=== PATIENT | male | born 1955 | race African-American/Black ===

== ENCOUNTER 2017-09-30 12:29 | Emergency (ER) | payer OTHER ==
[~2017-09-30] VITALS: Ht 170.2 cm; Wt 75.5 kg
[2017-09-30] MEDS ORDERED: UNK HTN MED PO (12:34)
[2017-09-30] MEDS ORDERED: IBUPROFEN 600 MG TABLET PO ONE (13:45)
[2017-09-30] MEDS ORDERED: AMOX TR/POT CLAV 875 MG/125 MG TABLET PO ONE (13:45)
[2017-09-30] MEDS ORDERED: PERTUSS(ACELL),DIPH,TET VAC/PF 0.5 ML VIAL IM ONE (13:45)
[2017-09-30 14:30] VITALS: BP 145/92
== END 2017-09-30 14:54 | disposition home or self-care (01) ==
LOC: EMS 12:30
DX: S51.831A Puncture wound without foreign body of right forearm, initial encounter (principal); M19.90 Unspecified osteoarthritis, unspecified site; K21.9 Gastro-esophageal reflux disease without esophagitis; I10 Essential (primary) hypertension; F17.210 Nicotine dependence, cigarettes, uncomplicated; W54.0XXA Bitten by dog, initial encounter; Y93.89 Activity, other specified; Y92.89 Other specified places as the place of occurrence of the external cause; Y99.8 Other external cause status
CPT/HCPCS: 90471; 90715; 99284

== ENCOUNTER 2018-06-02 11:11 | Emergency (ER) | payer OTHER ==
[~2018-06-02] VITALS: Ht 170.2 cm; Wt 76.4 kg
[~2018-06-02 11:11] MED LIST: UNK HTN MED PO
[2018-06-02] MEDS ORDERED: NORT25 PO (11:19)
[2018-06-02] MEDS ORDERED: GABA-531 PO (11:19)
[2018-06-02] MEDS ORDERED: GLEC1TAB PO (11:19)
[2018-06-02] MEDS ORDERED: OMEP20 PO (11:19)
[2018-06-02] MEDS ORDERED: AMLO-512 PO (11:19)
[2018-06-02] MEDS ORDERED: RANI150T7 PO (11:19)
[2018-06-02] MEDS ORDERED: LISI-662 PO (11:19)
[2018-06-02] MEDS ORDERED: MORPHINE SULFATE 4 MG/ML SYRINGE IVP ONE (11:45)
[2018-06-02] MEDS ORDERED: ONDANSETRON HCL 4 MG/2 ML VIAL IVP ONE (11:45)
[2018-06-02] MEDS ORDERED: SODIUM CHLORIDE 0.9% 1,000 ML IV ONE (11:45)
[2018-06-02] MEDS ORDERED: IOVERSOL 320 MG/ML 100 ML VIAL ONE (11:48)
[2018-06-02 11:50] LABS: BASOPHILS % (AUTO) 0.6 % (0.0-2.0); EOSINOPHILS % (AUTO) 0.4 % (1.0-6.0); HEMATOCRIT 45.5 % (41-53); HEMOGLOBIN 15.6 g/dL (13.5-17.5); LYMPHOCYTES # (AUTO) 2.6 K/uL (1.0-4.8); MEAN CORPUSCULAR HEMOGLOBIN 31.6 pg (26.0-34.0); MEAN CORPUSCULAR HGB CONC 34.2 G/dL (31.0-37.0); MEAN CORPUSCULAR VOLUME 92 fL (80-100); MONOCYTES % (AUTO) 6.8 % (2.0-9.0); NEUTROPHILS # (AUTO) 11.4 K/uL (1.8-7.7); NEUTROPHILS % (AUTO) 75.2 % (40.0-70.0); PLATELET COUNT (AUTO) 269 K/uL (150-450); RED BLOOD CELL COUNT(AUTO) 4.93 MIL/uL (4.50-5.90); RED CELL DISTRIBUTION WIDTH 12.5 % (11.5-14.5)
[2018-06-02 12:00] VITALS: BP 153/81
[2018-06-02 12:01] LABS: ANION GAP 10 mmol/L (8-16); CALCIUM, TOTAL 9.9 mg/dL (8.8-10.5); CARBON DIOXIDE 28 mmol/L (22-29); CHLORIDE 100 mmol/L (98-107); CREATININE 1.09 mg/dL (0.60-1.30); GLOMERULAR FILTR. RATE CALC > 60 mL/min (>60); GLUCOSE,RANDOM 174 mg/dL (70-110); POTASSIUM 4.6 mmol/L (3.5-5.1); SODIUM SERUM 138 mmol/L (136-145); UREA NITROGEN, BLOOD 14 mg/dL (7-18)
[2018-06-02 12:07] LABS: ALANINE AMINOTRANSFERASE 22 U/L (12-78); ALBUMIN 3.9 g/dL (3.4-5.0); ALKALINE PHOSPHATASE 79 U/L (46-116); ASPARTATE AMINOTRANSFERASE 15 U/L (15-37); BILIRUBIN,TOTAL 0.7 mg/dL (0.1-1.0); LIPASE 73 U/L (73-393); TOTAL PROTEIN, SERUM 8.1 g/dL (6.4-8.2)
[2018-06-02 13:13] LABS: BILIRUBIN,URINE NEGATIVE (NEGATIVE); GLUCOSE, URINE (UA) NEGATIVE (NEGATIVE); KETONES,URINE >=80 mg/dL (NEGATIVE); LEUKOCYTE ESTERASE ,URINE TRACE (NEGATIVE); NITRATE,URINE NEGATIVE (NEGATIVE); OCCULT BLOOD,URINE NEGATIVE (NEGATIVE); PROTEIN,URINE POS 1+ (NEGATIVE)
[2018-06-02 13:43] LABS: APPEARANCE,URINE HAZY (CLEAR); BACTERIA,URINE None Seen /HPF (None Seen); RBC,URINE None Seen /HPF (0-2); SQUAMOUS EPITHELIAL CELL,UR Few /LPF (None Seen); WBC,URINE 0-2 /HPF (0-5)
== END 2018-06-02 14:32 | disposition home or self-care (01) ==
LOC: EMS 11:12
DX: K52.9 Noninfective gastroenteritis and colitis, unspecified (principal); K21.9 Gastro-esophageal reflux disease without esophagitis; I10 Essential (primary) hypertension; M19.90 Unspecified osteoarthritis, unspecified site; F17.210 Nicotine dependence, cigarettes, uncomplicated; Z79.899 Other long term (current) drug therapy
CPT/HCPCS: 36415; 74177; 80053; 81001; 83690; 84484; 85025; 93005; 96361; 96374; 96375; 99285; G0480; J2270; J2405; J7030; Q9967

== ENCOUNTER 2018-07-04 22:32 | Emergency (ER) | payer OTHER ==
[~2018-07-04] VITALS: Ht 170.2 cm; Wt 75.5 kg
[~2018-07-04 22:32] MED LIST changes: +AMLO-512 PO; +GABA-531 PO; +GLEC1TAB PO; +LISI-662 PO; +NORT25 PO; +OMEP20 PO; +RANI150T7 PO
[2018-07-04 23:23] LABS: BASOPHILS % (AUTO) 0.8 % (0.0-2.0); EOSINOPHILS % (AUTO) 0.6 % (1.0-6.0); HEMOGLOBIN 14.5 g/dL (13.5-17.5); LYMPHOCYTES # (AUTO) 2.6 K/uL (1.0-4.8); LYMPHOCYTES % (AUTO) 18.1 % (22.0-44.0); MEAN CORPUSCULAR HEMOGLOBIN 31.5 pg (26.0-34.0); MEAN CORPUSCULAR HGB CONC 33.8 G/dL (31.0-37.0); MEAN CORPUSCULAR VOLUME 93 fL (80-100); MONOCYTES # (AUTO) 1.1 K/uL (0.1-1.0); MONOCYTES % (AUTO) 7.9 % (2.0-9.0); NEUTROPHILS # (AUTO) 10.3 K/uL (1.8-7.7); NEUTROPHILS % (AUTO) 72.6 % (40.0-70.0); PLATELET COUNT (AUTO) 267 K/uL (150-450); RED BLOOD CELL COUNT(AUTO) 4.61 MIL/uL (4.50-5.90); RED CELL DISTRIBUTION WIDTH 12.6 % (11.5-14.5)
[2018-07-04 23:33] LABS: ANION GAP 10 mmol/L (8-16); CALCIUM, TOTAL 8.8 mg/dL (8.8-10.5); CARBON DIOXIDE 25 mmol/L (22-29); CHLORIDE 101 mmol/L (98-107); CREATININE 0.99 mg/dL (0.60-1.30); GLOMERULAR FILTR. RATE CALC > 60 mL/min (>60); GLUCOSE,RANDOM 189 mg/dL (70-110); POTASSIUM 4.5 mmol/L (3.5-5.1); SODIUM SERUM 136 mmol/L (136-145); UREA NITROGEN, BLOOD 16 mg/dL (7-18)
[2018-07-04 23:38] LABS: ALANINE AMINOTRANSFERASE 21 U/L (12-78); ALBUMIN 3.8 g/dL (3.4-5.0); ALKALINE PHOSPHATASE 67 U/L (46-116); ASPARTATE AMINOTRANSFERASE 16 U/L (15-37); BILIRUBIN,TOTAL 0.6 mg/dL (0.1-1.0); LIPASE 127 U/L (73-393); TOTAL PROTEIN, SERUM 7.6 g/dL (6.4-8.2)
[2018-07-05 00:27] LABS: APPEARANCE,URINE CLEAR (CLEAR); BILIRUBIN,URINE PRELIM. POSITIVE (NEGATIVE); GLUCOSE, URINE (UA) NEGATIVE (NEGATIVE); KETONES,URINE 40 mg/dL (NEGATIVE); LEUKOCYTE ESTERASE ,URINE TRACE (NEGATIVE); NITRATE,URINE NEGATIVE (NEGATIVE); OCCULT BLOOD,URINE NEGATIVE (NEGATIVE); PROTEIN,URINE TRACE (NEGATIVE); UROBILINOGEN,URINE 0.2 mg/dL (<=1.0)
[2018-07-05 00:34] LABS: BACTERIA,URINE Rare /HPF (None Seen); RBC,URINE 0-2 /HPF (0-2)
[2018-07-05 00:35] LABS: MUCUS,URINE Moderate LPF (None Seen); SQUAMOUS EPITHELIAL CELL,UR Few /LPF (None Seen)
[2018-07-05] MEDS ORDERED: PB/HYOSCY/ATR/SCOP/LIDO/MAALOX 55 ML BOTTLE PO ONE (00:45)
[2018-07-05] MEDS ORDERED: SUCRALFATE 1 GM TABLET PO ONE (00:45)
[2018-07-05] MEDS ORDERED: SODIUM CHLORIDE 0.9% 1,000 ML IV ONE (00:45)
[2018-07-05] MEDS ORDERED: FAMOTIDINE 10 MG/ML 2 ML VIAL IVP ONE (00:45)
[2018-07-05] MEDS ORDERED: IOVERSOL 350 MG/ML 100 ML VIAL ONE (01:28)
[2018-07-05] MEDS ORDERED: SODIUM CHLORIDE 0.9% 100 ML ONE (01:28)
[2018-07-05] MEDS ORDERED: SULFAMETHOX/TRIMETH DS 800-160 MG/TABLET PO ONE (03:30)
[2018-07-05] MEDS ORDERED: MetroNIDAZOLE 250 MG TABLET PO ONE (03:30)
[2018-07-05 04:15] VITALS: BP 125/69
== END 2018-07-05 04:10 | disposition home or self-care (01) ==
LOC: EMS 22:32
DX: K52.9 Noninfective gastroenteritis and colitis, unspecified (principal); K21.9 Gastro-esophageal reflux disease without esophagitis; I10 Essential (primary) hypertension; F17.210 Nicotine dependence, cigarettes, uncomplicated; F12.90 Cannabis use, unspecified, uncomplicated; Z79.899 Other long term (current) drug therapy
CPT/HCPCS: 36415; 74177; 80053; 81001; 83690; 85025; 87086; 93005; 96361; 96374; 99285; J3490; J7030; J7050; Q9967; Z7610

== ENCOUNTER 2018-08-08 08:16 | Emergency (ER) | payer OTHER ==
[~2018-08-08] VITALS: Ht 170.2 cm; Wt 90.3 kg
[2018-08-08 09:06] LABS: BASOPHILS % (AUTO) 0.5 % (0.0-2.0); EOSINOPHILS % (AUTO) 1.1 % (1.0-6.0); HEMATOCRIT 45.6 % (41-53); HEMOGLOBIN 15.4 g/dL (13.5-17.5); LYMPHOCYTES # (AUTO) 2.1 K/uL (1.0-4.8); LYMPHOCYTES % (AUTO) 12.7 % (22.0-44.0); MEAN CORPUSCULAR HEMOGLOBIN 31.7 pg (26.0-34.0); MEAN CORPUSCULAR HGB CONC 33.7 G/dL (31.0-37.0); MEAN CORPUSCULAR VOLUME 94 fL (80-100); MONOCYTES # (AUTO) 1.3 K/uL (0.1-1.0); MONOCYTES % (AUTO) 7.5 % (2.0-9.0); NEUTROPHILS # (AUTO) 13.1 K/uL (1.8-7.7); NEUTROPHILS % (AUTO) 78.2 % (40.0-70.0); PLATELET COUNT (AUTO) 250 K/uL (150-450); RED BLOOD CELL COUNT(AUTO) 4.85 MIL/uL (4.50-5.90); RED CELL DISTRIBUTION WIDTH 12.6 % (11.5-14.5)
[2018-08-08] MEDS ORDERED: ONDANSETRON HCL 4 MG/2 ML VIAL IVP ONE (09:15)
[2018-08-08] MEDS ORDERED: SODIUM CHLORIDE 0.9% 1,000 ML IV ONE (09:15)
[2018-08-08] MEDS ORDERED: FAMOTIDINE 10 MG/ML 2 ML VIAL IVP ONE (09:15)
[2018-08-08] MEDS ORDERED: PB/HYOSCY/ATR/SCOP/LIDO/MAALOX 55 ML BOTTLE PO ONE (09:15)
[2018-08-08 09:19] LABS: ANION GAP 6 mmol/L (8-16); CALCIUM, TOTAL 9.5 mg/dL (8.8-10.5); CARBON DIOXIDE 30 mmol/L (22-29); CHLORIDE 101 mmol/L (98-107); GLOMERULAR FILTR. RATE CALC > 60 mL/min (>60); GLUCOSE,RANDOM 122 mg/dL (70-110); POTASSIUM 4.4 mmol/L (3.5-5.1); SODIUM SERUM 137 mmol/L (136-145); UREA NITROGEN, BLOOD 12 mg/dL (7-18)
[2018-08-08 09:25] LABS: ALANINE AMINOTRANSFERASE 27 U/L (12-78); ALBUMIN 3.9 g/dL (3.4-5.0); ALKALINE PHOSPHATASE 68 U/L (46-116); ASPARTATE AMINOTRANSFERASE 16 U/L (15-37); BILIRUBIN,TOTAL 0.8 mg/dL (0.1-1.0); LIPASE 88 U/L (73-393); TOTAL PROTEIN, SERUM 7.9 g/dL (6.4-8.2)
[2018-08-08 09:35] LABS: GLUCOSE, URINE (UA) NEGATIVE (NEGATIVE); KETONES,URINE 40 mg/dL (NEGATIVE); LEUKOCYTE ESTERASE ,URINE SMALL (NEGATIVE); NITRATE,URINE NEGATIVE (NEGATIVE); OCCULT BLOOD,URINE NEGATIVE (NEGATIVE); PROTEIN,URINE POS 1+ (NEGATIVE); UROBILINOGEN,URINE 0.2 mg/dL (<=1.0)
[2018-08-08 09:40] LABS: BILIRUBIN,URINE PRELIM. POSITIVE (NEGATIVE)
[2018-08-08 09:41] LABS: APPEARANCE,URINE HAZY (CLEAR); BACTERIA,URINE None Seen /HPF (None Seen)
[2018-08-08 09:42] LABS: RBC,URINE 0-2 /HPF (0-2); SQUAMOUS EPITHELIAL CELL,UR Moderate /LPF (None Seen)
[2018-08-08 10:41] VITALS: BP 137/87
== END 2018-08-08 11:21 | disposition home or self-care (01) ==
LOC: EMS 08:17
DX: R10.13 Epigastric pain (principal); D72.829 Elevated white blood cell count, unspecified; K21.9 Gastro-esophageal reflux disease without esophagitis; I10 Essential (primary) hypertension; M19.90 Unspecified osteoarthritis, unspecified site; F17.210 Nicotine dependence, cigarettes, uncomplicated; F12.90 Cannabis use, unspecified, uncomplicated; Z79.899 Other long term (current) drug therapy
CPT/HCPCS: 36415; 80053; 81001; 83690; 84484; 85025; 93005; 96374; 96375; 99285; 99406; J2405; J3490; J7030

== ENCOUNTER 2018-08-21 18:41 | Emergency (ER) | payer OTHER ==
[~2018-08-21] VITALS: Ht 170.2 cm; Wt 76.4 kg
[2018-08-21 20:05] LABS: BASOPHILS % (AUTO) 0.6 % (0.0-2.0); EOSINOPHILS % (AUTO) 0.8 % (1.0-6.0); HEMATOCRIT 43.8 % (41-53); HEMOGLOBIN 14.7 g/dL (13.5-17.5); LYMPHOCYTES % (AUTO) 13.6 % (22.0-44.0); MEAN CORPUSCULAR HEMOGLOBIN 31.4 pg (26.0-34.0); MEAN CORPUSCULAR HGB CONC 33.6 G/dL (31.0-37.0); MEAN CORPUSCULAR VOLUME 93 fL (80-100); MONOCYTES # (AUTO) 0.7 K/uL (0.1-1.0); MONOCYTES % (AUTO) 4.5 % (2.0-9.0); NEUTROPHILS # (AUTO) 11.8 K/uL (1.8-7.7); NEUTROPHILS % (AUTO) 80.5 % (40.0-70.0); PLATELET COUNT (AUTO) 319 K/uL (150-450); RED BLOOD CELL COUNT(AUTO) 4.68 MIL/uL (4.50-5.90); RED CELL DISTRIBUTION WIDTH 12.6 % (11.5-14.5)
[2018-08-21 20:27] LABS: ANION GAP 9 mmol/L (8-16); CARBON DIOXIDE 28 mmol/L (22-29); CHLORIDE 100 mmol/L (98-107); GLOMERULAR FILTR. RATE CALC > 60 mL/min (>60); GLUCOSE,RANDOM 152 mg/dL (70-110); POTASSIUM 4.1 mmol/L (3.5-5.1); SODIUM SERUM 137 mmol/L (136-145); UREA NITROGEN, BLOOD 16 mg/dL (7-18)
[2018-08-21 20:31] LABS: ALANINE AMINOTRANSFERASE 26 U/L (12-78); ALBUMIN 3.9 g/dL (3.4-5.0); ALKALINE PHOSPHATASE 69 U/L (46-116); ASPARTATE AMINOTRANSFERASE 19 U/L (15-37); BILIRUBIN,TOTAL 0.6 mg/dL (0.1-1.0); LIPASE 91 U/L (73-393); TOTAL PROTEIN, SERUM 8.2 g/dL (6.4-8.2)
[2018-08-21] MEDS ORDERED: ONDANSETRON HCL 4 MG/2 ML VIAL IVP ONE (21:15)
[2018-08-21] MEDS ORDERED: MORPHINE SULFATE 4 MG/ML SYRINGE IVP ONE (21:15)
[2018-08-21] MEDS ORDERED: SODIUM CHLORIDE 0.9% 1,000 ML IV ONE (21:15)
[2018-08-21] MEDS ORDERED: PB/HYOSCY/ATR/SCOP/LIDO/MAALOX 55 ML BOTTLE PO ONE (21:15)
[2018-08-21 21:24] LABS: APPEARANCE,URINE CLEAR (CLEAR); BILIRUBIN,URINE NEGATIVE (NEGATIVE); GLUCOSE, URINE (UA) NEGATIVE (NEGATIVE); KETONES,URINE >=80 mg/dL (NEGATIVE); LEUKOCYTE ESTERASE ,URINE NEGATIVE (NEGATIVE); NITRATE,URINE NEGATIVE (NEGATIVE); OCCULT BLOOD,URINE NEGATIVE (NEGATIVE); PH,URINE 5.5 (5.0-8.0); PROTEIN,URINE TRACE (NEGATIVE); UROBILINOGEN,URINE 0.2 mg/dL (<=1.0)
[2018-08-21] MEDS ORDERED: IOVERSOL 320 MG/ML 100 ML VIAL ONE (21:43)
[2018-08-21] MEDS ORDERED: SODIUM CHLORIDE 0.9% 100 ML ONE (21:43)
[2018-08-21 23:10] VITALS: BP 124/86
== END 2018-08-21 23:32 | disposition home or self-care (01) ==
LOC: EMS 18:42
DX: R10.13 Epigastric pain (principal); R11.2 Nausea with vomiting, unspecified; R10.12 Left upper quadrant pain; K21.9 Gastro-esophageal reflux disease without esophagitis; I10 Essential (primary) hypertension; M19.90 Unspecified osteoarthritis, unspecified site; F17.210 Nicotine dependence, cigarettes, uncomplicated; F12.90 Cannabis use, unspecified, uncomplicated; Z79.899 Other long term (current) drug therapy
CPT/HCPCS: 36415; 74177; 80053; 81003; 83690; 84484; 85025; 96374; 96375; 99284; J2270; J2405; J7030; J7050; Q9967

== ENCOUNTER 2019-06-27 17:16 | Inpatient (IN) | payer OTHER ==
[~2019-06-27] VITALS: Ht 170.2 cm; Wt 76.8 kg
[~2019-06-27 17:16] MED LIST changes: -AMLO-512 PO; +AMLO10TA7 PO
[2019-06-27] MEDS ORDERED: SODIUM CHLORIDE 0.9% 1,000 ML IV ONE ×3 (17:45→21:15)
[2019-06-27] MEDS ORDERED: ONDANSETRON HCL 4 MG/2 ML VIAL IVP ONE (17:45)
[2019-06-27] MEDS ORDERED: FAMOTIDINE 10 MG/ML 2 ML VIAL IVP ONE (17:45)
[2019-06-27 18:02] LABS: BASOPHILS % (AUTO) 0.5 % (0.0-2.0); EOSINOPHILS % (AUTO) 2.5 % (1.0-6.0); HEMATOCRIT 42.6 % (41-53); LYMPHOCYTES # (AUTO) 2.9 K/uL (1.0-4.8); LYMPHOCYTES % (AUTO) 19.6 % (22.0-44.0); MEAN CORPUSCULAR HGB CONC 32.9 G/dL (31.0-37.0); MEAN CORPUSCULAR VOLUME 94 fL (80-100); MONOCYTES # (AUTO) 1.2 K/uL (0.1-1.0); MONOCYTES % (AUTO) 7.9 % (2.0-9.0); NEUTROPHILS # (AUTO) 10.4 K/uL (1.8-7.7); NEUTROPHILS % (AUTO) 69.5 % (40.0-70.0); PLATELET COUNT (AUTO) 280 K/uL (150-450); RED BLOOD CELL COUNT(AUTO) 4.52 MIL/uL (4.50-5.90)
[2019-06-27 18:15] LABS: ANION GAP 12 mmol/L (8-16); CALCIUM, TOTAL 9.6 mg/dL (8.8-10.5); CARBON DIOXIDE 24 mmol/L (22-29); CHLORIDE 101 mmol/L (98-107); CREATININE 1.18 mg/dL (0.60-1.30); GLOMERULAR FILTR. RATE CALC > 60 mL/min (>60); GLUCOSE,RANDOM 160 mg/dL (70-110); SODIUM SERUM 137 mmol/L (136-145); UREA NITROGEN, BLOOD 13 mg/dL (7-18)
[2019-06-27 18:20] LABS: PROTHROMBIN TIME 10.2 SEC (9.4-11.6)
[2019-06-27 18:31] LABS: B-TYPE NATRIURETIC PEPTIDE 25 pg/mL (0-100)
[2019-06-27 18:41] LABS: ALANINE AMINOTRANSFERASE 27 U/L (12-78); ALBUMIN 3.8 g/dL (3.4-5.0); ALKALINE PHOSPHATASE 49 U/L (46-116); ASPARTATE AMINOTRANSFERASE 21 U/L (15-37); BILIRUBIN,TOTAL 0.4 mg/dL (0.1-1.0); CREATINE KINASE, TOTAL ONLY 267 U/L (39-308); LIPASE 56 U/L (73-393); TOTAL PROTEIN, SERUM 7.1 g/dL (6.4-8.2)
[2019-06-27] MEDS ORDERED: SODIUM CHLORIDE 0.9% 100 ML ONE (18:56)
[2019-06-27] MEDS ORDERED: IOVERSOL 320 MG/ML 100 ML VIAL ONE (18:56)
[2019-06-27] MEDS ORDERED: PB/HYOSCY/ATR/SCOP/LIDO/MAALOX 55 ML BOTTLE PO ONE (19:00)
[2019-06-27 19:26] LABS: APPEARANCE,URINE CLEAR (CLEAR); BILIRUBIN,URINE NEGATIVE (NEGATIVE); GLUCOSE, URINE (UA) NEGATIVE (NEGATIVE); KETONES,URINE TRACE mg/dL (NEGATIVE); LEUKOCYTE ESTERASE ,URINE NEGATIVE (NEGATIVE); NITRATE,URINE NEGATIVE (NEGATIVE); OCCULT BLOOD,URINE NEGATIVE (NEGATIVE); PROTEIN,URINE NEGATIVE (NEGATIVE); UROBILINOGEN,URINE 0.2 mg/dL (<=1.0)
[2019-06-27] MEDS ORDERED: MORPHINE SULFATE 4 MG/ML SYRINGE IVP ONE (20:30)
[2019-06-27] MEDS ORDERED: MetroNIDAZOLE 500 MG/NACL 100 ML IV ONE (20:30)
[2019-06-27] MEDS ORDERED: CIPROFLOXACIN 400 MG/D5% WATER 200 ML IV ONE (20:30)
[2019-06-27] MEDS ORDERED: NICOTINE 21 MG/24 HOUR PATCH TD ONE (20:45)
[2019-06-27 22:01] VITALS: BP 139/92
[2019-06-27 23:41] VITALS: BP 135/61
[2019-06-27] MEDS ORDERED: OxyCODONE HCL/ACETAMINOPHEN 5-325 MG TABLET PO PRN (23:45)
[2019-06-28] MEDS ORDERED: OxyCODONE HCL/ACETAMINOPHEN 5-325 MG TABLET PO PRN ×2 (00:45)
[2019-06-28] MEDS ORDERED: 0.9% SODIUM CHLORIDE 10 ML SYRINGE IVP PRN (00:45)
[2019-06-28] MEDS ORDERED: ONDANSETRON HCL 4 MG/2 ML VIAL IVP PRN (00:45)
[2019-06-28 04:44] VITALS: BP 142/88
[2019-06-28] MEDS ORDERED: MetroNIDAZOLE 500 MG/NACL 100 ML IV SCH (05:00)
[2019-06-28 07:45] VITALS: BP 126/80
[2019-06-28] MEDS ORDERED: AmLODIPine BESYLATE 10 MG TABLET PO SCH (09:00)
[2019-06-28] MEDS ORDERED: LISINOPRIL 20 MG TABLET PO SCH (09:00)
[2019-06-28] MEDS ORDERED: FAMOTIDINE 10 MG/ML 2 ML VIAL IVP SCH ×2 (09:00→21:00)
[2019-06-28] MEDS ORDERED: DOCUSATE SODIUM 100 MG CAPSULE PO SCH (09:00)
[2019-06-28] MEDS ORDERED: CIPROFLOXACIN 400 MG/D5% WATER 200 ML IV SCH (10:00)
[2019-06-28 10:31] LABS: BASOPHILS % (AUTO) 0.4 % (0.0-2.0); EOSINOPHILS % (AUTO) 2.4 % (1.0-6.0); HEMATOCRIT 34.4 % (41-53); HEMOGLOBIN 11.6 g/dL (13.5-17.5); LYMPHOCYTES % (AUTO) 28.2 % (22.0-44.0); MEAN CORPUSCULAR HEMOGLOBIN 32.3 pg (26.0-34.0); MEAN CORPUSCULAR HGB CONC 33.8 G/dL (31.0-37.0); MEAN CORPUSCULAR VOLUME 96 fL (80-100); MONOCYTES # (AUTO) 0.8 K/uL (0.1-1.0); NEUTROPHILS # (AUTO) 6.5 K/uL (1.8-7.7); PLATELET COUNT (AUTO) 197 K/uL (150-450); RED CELL DISTRIBUTION WIDTH 12.7 % (11.5-14.5)
[2019-06-28] MEDS ORDERED: SODIUM CHLORIDE 0.9% 1,000 ML IV SCH (10:45)
[2019-06-28] MEDS ORDERED: LACTOBACILLUS ACIDOPHILUS/BULGARICUS TABLET PO SCH (10:45)
[2019-06-28] MEDS ORDERED: DOCUSATE SODIUM 100 MG CAPSULE PO PRN (10:45)
[2019-06-28] MEDS ORDERED: MORPHINE SULFATE 2 MG/ML SYRINGE IVP PRN (10:45)
[2019-06-28] MEDS ORDERED: CefTRIAXone 1 GM/DEXTROSE 50 ML IV SCH (11:00)
[2019-06-28 11:20] VITALS: BP 102/53
[2019-07-03 16:27] VITALS: BP 103/57
== END 2019-06-28 12:55 | disposition left against medical advice (07) | DRG 282 ==
LOC: EMS 17:16 → 4E 21:30
PROVIDERS: ADMIT Internal Medicine; ATTEND Internal Medicine
DX: K85.90 Acute pancreatitis without necrosis or infection, unspecified (principal); R65.11 Systemic inflammatory response syndrome (SIRS) of non-infectious origin with acute organ dysfunction; K75.9 Inflammatory liver disease, unspecified; F17.210 Nicotine dependence, cigarettes, uncomplicated; K52.9 Noninfective gastroenteritis and colitis, unspecified; K21.9 Gastro-esophageal reflux disease without esophagitis; M19.90 Unspecified osteoarthritis, unspecified site; I10 Essential (primary) hypertension; Z87.11 Personal history of peptic ulcer disease; R73.9 Hyperglycemia, unspecified; Z53.21 Procedure and treatment not carried out due to patient leaving prior to being seen by health care provider
CPT/HCPCS: 74177; 82270; 83036; 83605; 87040; 87045; 87206; 89055; 93005; 96374; 96375; G0378; J0696; J0744; J2270; J2405; J3490; J7030; J7050

== ENCOUNTER 2024-02-13 05:01 | Emergency (ER) | payer OTHER ==
[~2024-02-13] VITALS: Ht 175.3 cm; Wt 78.2 kg
[~2024-02-13 05:01] MED LIST changes: +AMLO-258 PO; -AMLO10TA7 PO; +GABA-1181 PO; -GABA-531 PO; -GLEC1TAB PO; -LISI-662 PO; +LISI-894 PO; -UNK HTN MED PO
[2024-02-13 05:05] VITALS: BP 105/61; PULSE 112; RESP 16; TEMP 98
== END 2024-02-13 06:40 | disposition left against medical advice (07) ==
LOC: EMS 05:02
DX: F22 Delusional disorders (principal); M19.90 Unspecified osteoarthritis, unspecified site; F32.A Depression, unspecified; I10 Essential (primary) hypertension; F17.210 Nicotine dependence, cigarettes, uncomplicated; F12.90 Cannabis use, unspecified, uncomplicated; F15.90 Other stimulant use, unspecified, uncomplicated; Z98.890 Other specified postprocedural states
CPT/HCPCS: 99281; Z7502

== ENCOUNTER 2024-03-26 23:37 | Emergency (ER) | payer OTHER ==
[~2024-03-26] VITALS: Ht 170.2 cm; Wt 79.1 kg
[2024-03-26 23:41] VITALS: TEMP 97.4
[2024-03-27] MEDS: LORazepam 2 MG/ML VIAL IM ONE (01:09)
[2024-03-27 01:29] LABS: BASOPHILS % (AUTO) 0.3 % (0.0-2.0); EOSINOPHILS % (AUTO) 1.7 % (1.0-6.0); HEMATOCRIT 38.3 % (41-53); LYMPHOCYTES # (AUTO) 2.4 K/uL (1.0-4.8); LYMPHOCYTES % (AUTO) 18.5 % (22.0-44.0); MEAN CORPUSCULAR HEMOGLOBIN 31.5 pg (26.0-34.0); MEAN CORPUSCULAR HGB CONC 34.1 G/dL (31.0-37.0); MEAN CORPUSCULAR VOLUME 93 fL (80-100); MONOCYTES # (AUTO) 1.5 K/uL (0.1-1.0); MONOCYTES % (AUTO) 11.8 % (2.0-9.0); NEUTROPHILS # (AUTO) 8.7 K/uL (1.8-7.7); NEUTROPHILS % (AUTO) 67.7 % (40.0-70.0); PLATELET COUNT (AUTO) 269 K/uL (150-450); RED BLOOD CELL COUNT(AUTO) 4.13 MIL/uL (4.50-5.90); RED CELL DISTRIBUTION WIDTH 12.9 % (11.5-14.5); WHITE BLOOD COUNT (AUTO) 12.9 K/uL (4.5-11.0)
[2024-03-27 01:42] LABS: ANION GAP 9 mmol/L (8-16); CALCIUM, TOTAL 9.6 mg/dL (8.8-10.5); CARBON DIOXIDE 29 mmol/L (22-29); CHLORIDE 93 mmol/L (98-107); CREATININE 0.99 mg/dL (0.60-1.30); GLOMERULAR FILTR. RATE CALC > 60 mL/min (>60); GLUCOSE,RANDOM 125 mg/dL (70-110); POTASSIUM 3.1 mmol/L (3.5-5.1); SODIUM SERUM 131 mmol/L (136-145); UREA NITROGEN, BLOOD 16 mg/dL (7-18)
[2024-03-27 01:50] LABS: TROPONIN I-HIGH SENSITIVITY 18 ng/L (<76)
[2024-03-27 01:50] LABS: PH,URINE DRUG SCREEN 5.5 (5.0-8.0)
[2024-03-27 01:56] LABS: ALCOHOL, URINE DRUG SCREEN NEGATIVE (NEGATIVE); AMPHET/METH SCREEN,URINE POSITIVE (NEGATIVE); BARBITURATE SCREEN, URINE NEGATIVE (NEGATIVE); BENZODIAZEPINES SCREEN,URINE NEGATIVE (NEGATIVE); CANNABINOID SCREEN,URINE NEGATIVE (NEGATIVE); COCAINE SCREEN,URINE NEGATIVE (NEGATIVE); METHADONE SCREEN, URINE NEGATIVE (NEGATIVE); OPIATE SCREEN,URINE POSITIVE (NEGATIVE); PHENCYCLIDINE SCREEN,URINE NEGATIVE (NEGATIVE)
[2024-03-27 01:57] LABS: ALCOHOL, BLOOD (SERUM) < 3 mg/dL (0-10)
[2024-03-27] MEDS: OLANZapine 10 MG TABLET PO ONE (02:17)
[2024-03-27] MEDS: POTASSIUM CHLORIDE 20 MEQ ER TABLET PO ONE (02:17)
[2024-03-27] MEDS ORDERED: OLAN10TA22 PO (03:09)
[2024-03-27 08:12] VITALS: BP 140/89; PULSE 85; RESP 14
== END 2024-03-27 08:48 | disposition home or self-care (01) ==
LOC: EMS 23:37
DX: F15.10 Other stimulant abuse, uncomplicated (principal); F60.0 Paranoid personality disorder; E87.6 Hypokalemia; K21.9 Gastro-esophageal reflux disease without esophagitis; I10 Essential (primary) hypertension; F12.90 Cannabis use, unspecified, uncomplicated; F17.210 Nicotine dependence, cigarettes, uncomplicated; Z59.00 Homelessness unspecified; Z79.899 Other long term (current) drug therapy
CPT/HCPCS: 99285; 80048; 84484; 85025; 36415; 80307; 71045; 93005; 96372; G0480; J2060

== ENCOUNTER 2024-06-15 17:52 | Emergency (ER) | payer OTHER ==
[~2024-06-15 17:52] MED LIST changes: +OLAN10TA22 PO
== END 2024-06-15 18:18 | disposition left against medical advice (07) ==
LOC: EMS 17:54
DX: Z53.21 Procedure and treatment not carried out due to patient leaving prior to being seen by health care provider (principal)

== ENCOUNTER 2024-07-09 17:30 | Emergency (ER) | payer OTHER ==
[~2024-07-09] VITALS: Ht 170.2 cm; Wt 71.4 kg
[2024-07-09 19:20] VITALS: TEMP 98.7
[2024-07-09 19:46] LABS: GLUCOMETER DEV NAME(LOC) ER.7; GLUCOSE,POINT OF CARE 99 MG/DL (70-110)
[2024-07-09 20:25] LABS: BASOPHILS % (AUTO) 0.8 % (0.0-2.0); HEMATOCRIT 36.4 % (41-53); HEMOGLOBIN 12.2 g/dL (13.5-17.5); LYMPHOCYTES # (AUTO) 1.8 K/uL (1.0-4.8); LYMPHOCYTES % (AUTO) 20.3 % (22.0-44.0); MEAN CORPUSCULAR HEMOGLOBIN 31.3 pg (26.0-34.0); MEAN CORPUSCULAR HGB CONC 33.4 G/dL (31.0-37.0); MEAN CORPUSCULAR VOLUME 94 fL (80-100); MONOCYTES # (AUTO) 1.2 K/uL (0.1-1.0); NEUTROPHILS # (AUTO) 5.5 K/uL (1.8-7.7); NEUTROPHILS % (AUTO) 60.9 % (40.0-70.0); PLATELET COUNT (AUTO) 306 K/uL (150-450); RED BLOOD CELL COUNT(AUTO) 3.88 MIL/uL (4.50-5.90); RED CELL DISTRIBUTION WIDTH 13.3 % (11.5-14.5); WHITE BLOOD COUNT (AUTO) 9.1 K/uL (4.5-11.0)
[2024-07-09 20:35] LABS: ANION GAP 10 mmol/L (8-16); CALCIUM, TOTAL 9.2 mg/dL (8.8-10.5); CARBON DIOXIDE 28 mmol/L (22-29); CHLORIDE 103 mmol/L (98-107); CREATININE 0.79 mg/dL (0.60-1.30); GLOMERULAR FILTR. RATE CALC > 60 mL/min (>60); GLUCOSE,RANDOM 99 mg/dL (70-110); POTASSIUM 3.4 mmol/L (3.5-5.1); SODIUM SERUM 141 mmol/L (136-145); UREA NITROGEN, BLOOD 12 mg/dL (7-18)
[2024-07-09 20:44] LABS: ALCOHOL, BLOOD (SERUM) < 3 mg/dL (0-10)
[2024-07-09] MEDS: ACETAMINOPHEN 500 MG TABLET PO ONE (21:59)
[2024-07-09] MEDS: POTASSIUM CHLORIDE 20 MEQ ER TABLET PO ONE (21:59)
[2024-07-09 22:00] VITALS: BP 135/77; PULSE 81; RESP 15; O2SAT 95
[2024-07-09] MEDS: IBUPROFEN 600 MG TABLET PO ONE (22:00)
[2024-07-09] MEDS: GABAPENTIN 300 MG CAPSULE PO ONE (22:01)
[2024-07-09 22:44] LABS: COVID AG,FIA SOURCE NASAL SWAB
[2024-07-09 22:47] LABS: APPEARANCE,URINE CLEAR (CLEAR); BILIRUBIN,URINE NEGATIVE (NEGATIVE); COLOR,URINE LIGHT YELLOW (YELLOW); GLUCOSE, URINE (UA) NEGATIVE (NEGATIVE); KETONES,URINE NEGATIVE (NEGATIVE); LEUKOCYTE ESTERASE ,URINE NEGATIVE (NEGATIVE); NITRATE,URINE NEGATIVE (NEGATIVE); OCCULT BLOOD,URINE NEGATIVE (NEGATIVE); PROTEIN,URINE NEGATIVE (NEGATIVE); SPECIFIC GRAVITIY, URINE 1.013 (1.003-1.030); UROBILINOGEN,URINE <=1.0 mg/dL (<=1.0)
[2024-07-09 22:53] LABS: ALCOHOL, URINE DRUG SCREEN NEGATIVE (NEGATIVE); AMPHET/METH SCREEN,URINE POSITIVE (NEGATIVE); BARBITURATE SCREEN, URINE NEGATIVE (NEGATIVE); BENZODIAZEPINES SCREEN,URINE NEGATIVE (NEGATIVE); CANNABINOID SCREEN,URINE NEGATIVE (NEGATIVE); COCAINE SCREEN,URINE NEGATIVE (NEGATIVE); METHADONE SCREEN, URINE NEGATIVE (NEGATIVE); OPIATE SCREEN,URINE POSITIVE (NEGATIVE); PHENCYCLIDINE SCREEN,URINE NEGATIVE (NEGATIVE)
[2024-07-09 23:02] LABS: SARS-COV2 (COVID) ANTIGEN,FIA Negative (Negative)
[2024-07-10] MEDS ORDERED: ASPI-1444 PO (04:33)
[2024-07-10] MEDS ORDERED: HYDR-4062 PO (04:33)
[2024-07-10] MEDS ORDERED: PANT-31 PO (04:33)
[2024-07-10] MEDS ORDERED: METF-81 PO (04:33)
[2024-07-10] MEDS ORDERED: ALBU18HF12 IH (04:33)
[2024-07-10] MEDS ORDERED: OLAN10TA74 PO (04:33)
[2024-07-10] MEDS ORDERED: ATOR40TA28 PO (04:33)
[2024-07-10] MEDS ORDERED: GABA-1201 PO (04:33)
[2024-07-10] MEDS ORDERED: TRAZ150T80 PO (04:33)
[2024-07-11] MEDS ORDERED: NALO4SPR5 NASAL (13:08)
[2024-07-11] MEDS ORDERED: TAMS0.4C94 PO (13:08)
[2024-07-11] MEDS ORDERED: SERT-440 PO (13:08)
[2024-07-11] MEDS ORDERED: FLUT16SP NASAL (13:08)
[2024-07-11] MEDS ORDERED: FLUT1BLS15 IH (13:08)
[2024-07-11] MEDS ORDERED: ALBU0.8311 NEB (13:08)
[2024-07-11] MEDS ORDERED: NICO-803 TD (13:08)
[2024-07-11] MEDS ORDERED: CETI10TA58 PO (13:08)
[2024-07-11] MEDS ORDERED: LOSA100T59 PO (13:08)
== END 2024-07-10 01:51 | disposition admitted as inpatient to this hospital (09) ==
LOC: EMS 17:30
DX: F23 Brief psychotic disorder (principal); G89.4 Chronic pain syndrome; J44.9 Chronic obstructive pulmonary disease, unspecified; I10 Essential (primary) hypertension; E87.6 Hypokalemia; M19.90 Unspecified osteoarthritis, unspecified site; F32.A Depression, unspecified; K21.9 Gastro-esophageal reflux disease without esophagitis; F12.90 Cannabis use, unspecified, uncomplicated; F17.210 Nicotine dependence, cigarettes, uncomplicated; F15.90 Other stimulant use, unspecified, uncomplicated; Z98.890 Other specified postprocedural states; Z20.822 Contact with and (suspected) exposure to COVID-19
CPT/HCPCS: 99285; 87426; 80048; 81003; 82962; 85025; 36415; 80307; G0480

== ENCOUNTER 2024-07-10 12:31 | Inpatient (IN) | payer MEDICARE, MEDICAID ==
[~2024-07-10] VITALS: Ht 170.2 cm; Wt 67.1 kg
[~2024-07-10 12:31] MED LIST changes: +ALBU18HF12 IH; +ASPI-1444 PO; +ATOR40TA28 PO; +GABA-1201 PO; +HYDR-4062 PO; +METF-81 PO; +OLAN10TA74 PO; +PANT-31 PO; +TRAZ150T80 PO
[2024-07-10] MEDS: HYDROCODONE/ACETAMINOPHEN 5-325 MG TABLET PO ONE (15:37)
[2024-07-10] MEDS: GABAPENTIN 300 MG CAPSULE PO ONE (15:37)
[2024-07-10] MEDS: ASPIRIN 81 MG CHEWABLE TABLET PO ONE (15:38)
[2024-07-10] MEDS ORDERED: LOPERAMIDE HCL 2 MG CAPSULE PO PRN (16:45)
[2024-07-10] MEDS ORDERED: MAGNESIUM HYDROXIDE SUSPENSION 30 ML UDCUP PO PRN (16:45)
[2024-07-10 16:46] VITALS: BP 149/85; PULSE 105; RESP 19; TEMP 98; O2SAT 95
[2024-07-10 18:15] VITALS: BP 149/85; PULSE 105; RESP 18; TEMP 98; O2SAT 96
[2024-07-10 21:02] VITALS: BP 159/89; PULSE 84; RESP 18; TEMP 97.3; O2SAT 98
[2024-07-10] MEDS: ASPIRIN 81 MG CHEWABLE TABLET PO SCH (21:10)
[2024-07-10] MEDS: LISINOPRIL 20 MG TABLET PO SCH (21:10)
[2024-07-10] MEDS: ZOLPIDEM TARTRATE 10 MG TABLET PO PRN (21:11)
[2024-07-10] MEDS: AmLODIPine BESYLATE 10 MG TABLET PO SCH (21:11)
[2024-07-10] MEDS: LORazepam 2 MG TABLET PO PRN (21:11)
[2024-07-10] MEDS: ATORVASTATIN CALCIUM 40 MG TABLET PO SCH (21:14)
[2024-07-10] MEDS: GABAPENTIN 300 MG CAPSULE PO SCH (21:14)
[2024-07-11 10:28] VITALS: BP 135/68; PULSE 96; RESP 18; TEMP 97; O2SAT 99
[2024-07-11] MEDS: ALBUTEROL SULFATE HFA 90 MCG/PUFF 8 GM INHALER IH ONE (10:43)
[2024-07-11] MEDS: OLANZapine 10 MG TABLET PO SCH (12:30)
[2024-07-11] MEDS: GABAPENTIN 400 MG CAPSULE PO SCH (13:00)
[2024-07-11] MEDS ORDERED: TAMS0.4C94 PO (13:08)
[2024-07-11] MEDS ORDERED: SERT-440 PO (13:08)
[2024-07-11] MEDS ORDERED: LOSA100T59 PO (13:08)
[2024-07-11] MEDS ORDERED: CETI10TA58 PO (13:08)
[2024-07-11] MEDS ORDERED: ALBU0.8311 NEB (13:08)
[2024-07-11] MEDS ORDERED: NICO-803 TD (13:08)
[2024-07-11] MEDS ORDERED: NALO4SPR5 NASAL (13:08)
[2024-07-11] MEDS ORDERED: FLUT16SP NASAL (13:08)
[2024-07-11] MEDS ORDERED: FLUT1BLS15 IH (13:08)
[2024-07-11] MEDS: MetFORMIN HCL 500 MG ER TABLET PO SCH (16:34)
[2024-07-11 20:40] VITALS: BP 135/70; PULSE 80; RESP 18; TEMP 97.5; O2SAT 99
[2024-07-11] MEDS: NORTRIPTYLINE HCL 25 MG CAPSULE PO SCH (21:26)
[2024-07-11] MEDS: HALOPERIDOL 5 MG TABLET PO PRN (21:28)
[2024-07-11] MEDS: TraZODone HCL 150 MG TABLET PO SCH (21:28)
[2024-07-12] MEDS: MAG HYDROX/ALUMINUM HYD/SIMETH ES 30 ML SUSPENSION UDCUP PO PRN (02:39)
[2024-07-12 08:55] VITALS: BP 124/67; PULSE 108; RESP 17; TEMP 98.1; O2SAT 99
[2024-07-12 20:54] VITALS: BP 130/70; PULSE 85; RESP 18; TEMP 97.5; O2SAT 98
[2024-07-13 11:05] VITALS: BP 100/70; PULSE 92; RESP 17; TEMP 98.1; O2SAT 99
[2024-07-13] MEDS: ACETAMINOPHEN 325 MG TABLET PO PRN (14:43)
[2024-07-13 20:30] VITALS: BP 148/83; PULSE 95; RESP 18; TEMP 97.8; O2SAT 98
[2024-07-14] MEDS ORDERED: ASPI-1450 PO (11:13)
[2024-07-14] MEDS ORDERED: NORT25 PO (11:13)
[2024-07-14] MEDS ORDERED: ATOR40TA71 PO (11:13)
[2024-07-14] MEDS ORDERED: LISI-894 PO (11:13)
[2024-07-14] MEDS ORDERED: AMLO-258 PO (11:13)
[2024-07-14] MEDS ORDERED: TRAZ-283 PO (11:13)
[2024-07-14] MEDS ORDERED: OLAN10TA74 PO (11:13)
[2024-07-14] MEDS ORDERED: METF-81 PO (11:13)
[2024-07-14] MEDS ORDERED: GABA-1201 PO (11:13)
[2024-07-14 11:25] VITALS: RESP 18
== END 2024-07-14 11:45 | disposition home or self-care (01) | DRG 885 ==
LOC: EMS 12:32 → 3EI 19:01
PROVIDERS: ADMIT Psychiatry & Neurology Psychiatry; ATTEND Psychiatry & Neurology Psychiatry
PROC: GZ56ZZZ Individual Psychotherapy, Supportive (ICD-10-PCS; principal; 2024-07-11)
DX: F25.1 Schizoaffective disorder, depressive type (principal); R45.851 Suicidal ideations; Z59.00 Homelessness unspecified; I10 Essential (primary) hypertension; K21.9 Gastro-esophageal reflux disease without esophagitis; J44.9 Chronic obstructive pulmonary disease, unspecified; E11.9 Type 2 diabetes mellitus without complications; E78.5 Hyperlipidemia, unspecified; F43.10 Post-traumatic stress disorder, unspecified; F60.9 Personality disorder, unspecified; F17.210 Nicotine dependence, cigarettes, uncomplicated; F41.9 Anxiety disorder, unspecified; Z79.899 Other long term (current) drug therapy; F15.10 Other stimulant abuse, uncomplicated
CPT/HCPCS: 87081; 99285; J3535